=== PATIENT | male | born 1980 | race Two or more races ===

== ENCOUNTER 2021-05-24 00:04 | Emergency (ER) | payer OTHER ==
[~2021-05-24] VITALS: Ht 180.3 cm; Wt 104.3 kg
[2021-05-24 00:13] VITALS: BP 139/95
== END 2021-05-24 03:08 | disposition left against medical advice (07) ==
LOC: ER 00:04
DX: M54.6 Pain in thoracic spine (principal); R06.02 Shortness of breath; Z53.21 Procedure and treatment not carried out due to patient leaving prior to being seen by health care provider
CPT/HCPCS: 71045